=== PATIENT | female | born 1950 | race African-American/Black ===

== ENCOUNTER 2022-06-22 00:18 | Inpatient (IN) | payer SELFPAY ==
[~2022-06-22] VITALS: Ht 165.1 cm; Wt 86.2 kg
[2022-06-22] MEDS ORDERED: HYDROCODONE/ACETAMINOPHEN 10/325MG TABLET PO ONE (01:30)
[2022-06-22 03:22] LABS: HEMATOCRIT 44.1 % (36.0-48.0); HEMOGLOBIN 14.3 g/dL (12.0-16.0); MEAN CORPUSCULAR HEMOGLOBIN 26.3 pg (28.0-32.0); MEAN CORPUSCULAR VOLUME 80.9 fL (81.0-99.0); PLATELET 173 x1000/uL (130-400); RED BLOOD CELL COUNT 5.45 mill/uL (4.2-5.4); RED CELL DISTRIBUTION WIDTH 17.6 % (11.6-14.6)
[2022-06-22 03:32] LABS: CHLORIDE 103 mEq/L (98-107)
[2022-06-22] MEDS ORDERED: MORPHINE SULFATE 4 MG/ML CPJ (NOT FOR IM USE) IV ONE (04:45)
[2022-06-22 05:04] LABS: HEMATOCRIT 38.6 % (36.0-48.0); HEMOGLOBIN 12.9 g/dL (12.0-16.0); MEAN CORPUSCULAR HEMOGLOBIN 26.5 pg (28.0-32.0); MEAN CORPUSCULAR VOLUME 79.4 fL (81.0-99.0); PLATELET 144 x1000/uL (130-400); RED BLOOD CELL COUNT 4.86 mill/uL (4.2-5.4); RED CELL DISTRIBUTION WIDTH 17.2 % (11.6-14.6)
[2022-06-22 05:13] LABS: CHLORIDE 105 mEq/L (98-107)
[2022-06-22 09:45] VITALS: BP 168/93
[2022-06-22 10:00] VITALS: BP 168/93
[2022-06-22] MEDS ORDERED: DIPHENHYDRAMINE 50MG/ML VIAL IV PRN (11:45)
[2022-06-22] MEDS ORDERED: MAGNESIUM/ALUMINUM HYDROXIDE/SIMETHICONE 30ML UDC PO PRN (11:45)
[2022-06-22] MEDS ORDERED: ONDANSETRON HCL 4MG/2ML INJ IV PRN (11:45)
[2022-06-22] MEDS ORDERED: ACETAMINOPHEN 325MG TABLET PO PRN ×2 (11:45)
[2022-06-22] MEDS ORDERED: ZOLPIDEM TARTRATE 5MG TABLET PO PRN (11:45)
[2022-06-22 12:00] VITALS: BP 168/82
[2022-06-22] MEDS ORDERED: NALOXONE HCL 0.4MG/ML VIAL IV PRN (12:00)
[2022-06-22] MEDS ORDERED: CLON0.1T MT (12:02)
[2022-06-22] MEDS ORDERED: METF-414 MT (12:02)
[2022-06-22] MEDS ORDERED: ALBU6.7H9 INH (12:02)
[2022-06-22] MEDS ORDERED: AMLO10TA80 MT (12:02)
[2022-06-22] MEDS ORDERED: POTASSIUM CHLORIDE 20MEQ TABLET SR PO NR ×2 (12:15→18:15)
[2022-06-22] MEDS: CLONIDINE 0.1MG TABLET PO PRN (12:43)
[2022-06-22] MEDS: HYDROCODONE/ACETAMINOPHEN 10/325MG TABLET PO PRN ×2 (12:45→20:47)
[2022-06-22] MEDS: MELOXICAM 7.5MG TABLET PO SCH (14:39)
[2022-06-22] MEDS: SODIUM CHLORIDE 0.9% INJ 3ML FLUSH IVF SCH ×2 (14:39→21:20)
[2022-06-22 16:00] VITALS: BP 130/75
[2022-06-22] MEDS: DOCUSATE SODIUM 100MG CAPSULE PO SCH (16:53)
[2022-06-22 20:00] VITALS: BP 124/74
[2022-06-22] MEDS ORDERED: FAMOTIDINE 20MG TABLET PO SCH (21:00)
[2022-06-23] VITALS: BP 162/83
[2022-06-23 04:00] VITALS: BP 173/97
[2022-06-23] MEDS: CLONIDINE 0.1MG TABLET PO PRN ×2 (04:31→13:27)
[2022-06-23] MEDS: HYDROCODONE/ACETAMINOPHEN 10/325MG TABLET PO PRN ×2 (04:39→13:27)
[2022-06-23] MEDS: SODIUM CHLORIDE 0.9% INJ 3ML FLUSH IVF SCH ×2 (06:03→13:29)
[2022-06-23 07:39] LABS: BASOPHILS % 0.9 % (0.0-2.0); CHLORIDE 106 mEq/L (98-107); EOSINOPHILS % 3.7 % (0.0-5.0); HEMATOCRIT. 33.1 % (36.0-48.0); HEMOGLOBIN. 11.4 g/dL (12.0-16.0); LYMPHOCYTES % 29.7 % (20.0-50.0); MEAN CORPUSCULAR HEMOGLOBIN 26.3 pg (28.0-32.0); MEAN CORPUSCULAR VOLUME 76.6 fL (81.0-99.0); MEAN PLATELET VOLUME 10.8 fl (7.4-10.4); MONOCYTES % 8.3 % (2.0-8.0); NEUTROPHILS % 57.4 % (40.0-76.0); PLATELET 146 x1000/uL (130-400); RED BLOOD CELL COUNT 4.32 mill/uL (4.2-5.4); RED CELL DISTRIBUTION WIDTH 16.6 % (11.6-14.6)
[2022-06-23 07:45] LABS: PHOSPHORUS 2.4 mg/dL (2.5-4.9)
[2022-06-23 08:00] VITALS: BP 159/77
[2022-06-23] MEDS: DOCUSATE SODIUM 100MG CAPSULE PO SCH (08:47)
[2022-06-23] MEDS: MELOXICAM 7.5MG TABLET PO SCH (08:47)
[2022-06-23 12:00] VITALS: BP 179/80
[2022-06-23 16:00] VITALS: BP 156/64
[2022-06-23 16:24] VITALS: BP 159/77
== END 2022-06-23 16:53 | disposition home or self-care (01) | DRG 384 ==
LOC: ER 00:18 → 6EST 04:45 → ENRESERV 08:04
PROVIDERS: ADMIT Internal Medicine; ATTEND Internal Medicine
DX: S70.02XA Contusion of left hip, initial encounter (principal); E11.9 Type 2 diabetes mellitus without complications; E87.6 Hypokalemia; J44.9 Chronic obstructive pulmonary disease, unspecified; W01.0XXA Fall on same level from slipping, tripping and stumbling without subsequent striking against object, initial encounter; S70.01XA Contusion of right hip, initial encounter; I10 Essential (primary) hypertension; M16.0 Bilateral primary osteoarthritis of hip; Z88.5 Allergy status to narcotic agent; Z88.0 Allergy status to penicillin; Z79.899 Other long term (current) drug therapy; Z86.73 Personal history of transient ischemic attack (TIA), and cerebral infarction without residual deficits; Z79.1 Long term (current) use of non-steroidal anti-inflammatories (NSAID); Y93.89 Activity, other specified; Y92.89 Other specified places as the place of occurrence of the external cause; Y99.8 Other external cause status
CPT/HCPCS: 36415; 71045; 72170; 72192; 80048; 80053; 83735; 84100; 85025; 85027; 99285; J2270